=== PATIENT | male | born 1960 | race African-American/Black ===

== ENCOUNTER 2018-06-18 16:27 | Inpatient (IN) | payer OTHER ==
[2018-06-18 22:43] VITALS: BMI 28.6
--- NOTE | 2018-06-19 00:25 | HP ---
CIWA Score - Admission Criteria OASAS Guidelines: Admission for Medically Managed Detox: Requires at least one of the followin. CIWA greater than 12 2. Seizures within the past 24 hours 3. Delirium tremens within the past 24 hours 4. Hallucinations within the past 24 hours 5. Acute intervention needed for co occurring medical disorder 6. Acute intervention needed for co occurring psychiatric disorder 7. Severe withdrawal that cannot be handled at a lower level of care (continued vomiting, continued diarrhea, abnormal vital signs) requiring intravenous medication and/or fluids 8. Admission ROS S - HPI Chief Complaint: seeking rehab services after detox Allergies/Adverse Reactions: Allergies Allergy/AdvReac Type Severity Reaction Status Date / Time No Known Allergies Allergy Verified 06/18/18 23:19 History of Present Illness: 58 Y.O. MALE WITH HX/O ALCOHOLISM AND CANNABIS DEPENDENCE HERE FOR REHAB SERVICES. CLIENT WAS REFERRED BY [facility] AFTER COMPLETING DETOX THERE TODAY for ALCOHOL. HIS UTOX + THC, MET, MTD AND BENZO. CLIENT DENIES ANY OPIATE USE. REPORTS LONGEST CLEAN TIME 3 YEARS SELF MAINTAINED. DENIES DRUG OVERDOSE, SI/HI, SEIZURE LIVES ALONE, SELF-EMPLOYED, DENIES LEGALS PMHX-HTN, GLAUCOMA R EYE, PSYC- ANXIETY, DEPRESSION Exam Limitations: No Limitations, Dementia (SHORT TERM MEMORY LOSS) - Ebola screening Have you traveled outside of the country in the last 21 days: No (N) Have you had contact with anyone from an Ebola affected area: No Have you been sick,other than usual withdrawal symptoms: No Do you have a fever: No - Review of Systems Constitutional: Changes in sleep EENT: reports: Blurred Vision (CHRONIC), Eye Pain (R EYE PAIN), Dental Problems (MISSING TEETH) Cardiac: reports: No Symptoms Reported GI: reports: No Symptoms Reported : reports: No Symptoms Reported (DENIES) Musculoskeletal: reports: No Symptoms Reported Integumentary: reports: No Symptoms Reported Neuro: reports: No Symptoms reported Endocrine: reports: No Symptoms Reported Hematology: reports: No Symptoms Reported Psychiatric: reports: Orientated x3, Agitated, Anxious, Depressed Patient History - Patient Medical History Hx Anemia: No Hx Asthma: No Hx Chronic Obstructive Pulmonary Disease (COPD): No Hx Cancer: No Hx Cardiac Disorders: No Hx Congestive Heart Failure: No Hx Hypertension: Yes Hx Hypercholesterolemia: No Hx Pacemaker: No HX Cerebrovascular Accident: No Hx Seizures: No Hx Dementia: No Hx Diabetes: No Hx Gastrointestinal Disorders: No Hx Liver Disease: No Hx Genitourinary Disorders: No Hx Sexually Transmitted Disorders: No Hx Renal Disease (ESRD): No Hx Thyroid Disease: No Hx Human Immunodeficiency Virus (HIV): No Hx Hepatitis C: Yes Hx Depression: Yes Hx Suicide Attempt: No Hx Bipolar Disorder: No Hx Schizophrenia: No Other Medical History: GLAUCOMA OF LEFT EYE - Patient Surgical History Past Surgical History: Yes Hx Orthopedic Surgery: Yes (R ANKLE) Anesthesia Reaction: No - PPD History Previous Implant?: Yes Documented Results: Negative w/o proof Implanted On Prior [facility] Admission?: No PPD to be Administered?: Yes - Smoking Cessation Smoking history: Former smoker Have you smoked in the past 12 months: No Initiated information on smoking cessation: No Family Disease History - Family Disease History Family History: Denies Admission Physical Exam S - Vital Signs Vital Signs: Vital Signs - 24 hr 06/18/18 22:41 Temperature 96.8 F L Pulse Rate 71 Respiratory 18 Rate Blood Pressure 142/96 - Physical General Appearance: Yes: No Apparent Distress, Appropriately Dressed HEENTM: Yes: EOMI, Normocephalic, Normal Voice, Pharynx Normal, Other (MISSING TEETH) Respiratory: Yes: Chest Non-Tender, Lungs Clear, Normal Breath Sounds, No Respiratory Distress, No Accessory Muscle Use Neck: Yes: No masses,lesions,Nodules, Supple, Trachea in good position Breast: Yes: Breast Exam Deferred Cardiology: Yes: Regular Rhythm, Regular Rate, S1, S2 Abdominal: Yes: Normal Bowel Sounds, Non Tender, Soft, Protuberent Genitourinary: Yes: Within Normal Limits (NO C/O OFFERED) Back: Yes: Normal Inspection Musculoskeletal: Yes: full range of Motion, Gait Steady Extremities: Yes: Normal Capillary Refill, Normal Range of Motion, Non-Tender Neurological: Yes: Fully Oriented, Alert, Motor Strength 5/5, Normal Mood/Affect Integumentary: Yes: Dry, Warm, Rash (FUNGAL RASH NOTED TO NECK), Pitting Edema ( trace edema to ble) Lymphatic: Yes: Within Normal Limits - Diagnostic (1) Uncomplicated alcohol dependence Current Visit: Yes Status: Acute (2) Cannabis abuse, uncomplicated Current Visit: Yes Status: Acute (3) Glaucoma Current Visit: Yes Status: Chronic (4) HTN (hypertension) Current Visit: Yes Status: Chronic Qualifiers: Hypertension type: essential hypertension Qualified Code(s): I10 - Essential (primary) hypertension (5) Depression Current Visit: Yes Status: Suspected (6) Tinea versicolor Current Visit: Yes Status: Acute Cleared for Admission [facility] - Detox or Rehab Detox Regimen/Protocol: Not Applicable Claeared for Rehab Admission: Yes [facility] Breath Alcohol Content Breath Alcohol Content: 0 Urine Drug Screen - Results Drug Screen Negative: No Urine Drug Screen Results: THC-Marijuana, MET-Methamphetamine, BZO- Benzodiazepines, MTD-Methadone Inpatient Rehab Admission - Rehab Decision to Admit Inpatient rehab admission?: Yes - Initial Determination Are CD services needed?: Yes Free of communicable disease: Yes Not in need of hospitalization: Yes - Rehab Admission Criteria Previous failed treatment: Yes Poor recovery environment: Yes Comorbidities: Yes Lacks judgement: No Patient is meeting Inpatient Rehab admission criteria:: Yes
[2018-06-19] MEDS ORDERED: LOPERAMIDE HCL 2 MG CAPSULE PO PRN (00:35)
[2018-06-19] MEDS ORDERED: MAG HYDROX/AL HYDROX/SIMETH 30 ML UNIT-DOSE CUP PO PRN (00:35)
[2018-06-19] MEDS ORDERED: P-EPHED 60MG/TRIPROLIDI 2.5MG TABLET PO PRN (00:35)
[2018-06-19] MEDS ORDERED: ACETAMINOPHEN 325 MG TABLET (FP) PO PRN (00:35)
[2018-06-19] MEDS ORDERED: MAGNESIUM CITRATE 300 ML BOTTLE PO PRN (00:35)
[2018-06-19] MEDS ORDERED: guaiFENesin 200 MG/10 ML 10 ML UNIT-DOSE CUPS PO PRN (00:35)
[2018-06-19] MEDS ORDERED: MAGNESIUM HYDROX 2400MG/30ML ORAL SUSPENSION 30 ML CUP PO PRN (00:35)
[2018-06-19] MEDS ORDERED: MENTHOL/PHENOL 1 EACH UD MM PRN (00:35)
[2018-06-19] MEDS ORDERED: IBUPROFEN 400 MG TABLET (FP) PO PRN (00:35)
[2018-06-19] MEDS: hydrOXYzine PAMOATE 50 MG CAPSULE (FP) PO PRN ×2 (03:42→23:32)
[2018-06-19] MEDS: PRENATAL VITAMINS W/ FOLIC ACID TABLET (FP) PO SCH (09:50)
[2018-06-19] MEDS: amLODIPine BESYLATE 5 MG TABLET (FP) PO SCH (09:50)
[2018-06-19 10:23] LABS: HEMATOCRIT 35.3 % (35.4-49); HEMOGLOBIN 12.5 GM/dL (11.7-16.9); MCH 35.7 pg (25.7-33.7); MCHC 35.3 g/dl (32.0-35.9); MEAN PLT VOLUME 10.3 fl (7.5-11.1); PLATELET COUNT 66 K/MM3 (134-434); RDW 12.9 % (11.9-15.9); WHITE BLOOD COUNT 4.4 K/mm3 (4.0-10.0)
[2018-06-19 10:55] LABS: ALK PHOS 84 U/L (45-117); ANION GAP 6 MMOL/L (8-16); BILIRUBIN,TOTAL 0.7 mg/dL (0.2-1); BLOOD UREA NITROGEN 10 mg/dL (7-18); CALCIUM 8.2 mg/dL (8.5-10.1); CHLORIDE 108 mmol/L (98-107); CO2 27 mmol/L (21-32); CREATININE 1.3 mg/dL (0.55-1.3); GLUCOSE,RANDOM 96 mg/dL (74-106); POTASSIUM 3.5 mmol/L (3.5-5.1); SGOT/AST 104 U/L (15-37); SGPT/ALT 126 U/L (13-61); SODIUM 141 mmol/L (136-145); TOT PROT 6.7 g/dl (6.4-8.2)
[2018-06-19] MEDS ORDERED: PNEUMOC 13-VAL CONJ-DIP CRM/PF 0.5 ML DISP.SYRIN IM ONE (12:00)
[2018-06-19] MEDS ORDERED: PNEUMOCOCCAL 23 VACCINE 0.5 ML VIAL IM ONE (12:00)
[2018-06-19] MEDS: CLOTRIMAZOLE 1% CREAM 15 GM TUBE TP SCH ×2 (12:14→21:36)
[2018-06-19] MEDS: TIMOLOL 0.5% OPHTHALMIC SOL 5 ML BOTTLE OD SCH ×2 (12:18→21:37)
[2018-06-19] MEDS ORDERED: FLU VACCINE QUAD 60 MCG/0.5 ML (MDV 18-19) IM ONE (12:32)
[2018-06-19 17:09] LABS: URINE APPEARANCE CLEAR; URINE BILIRUBIN NEGATIVE (<2.0 mg/dL); URINE COLOR YELLOW; URINE GLUCOSE (UA) NEGATIVE (NEGATIVE); URINE KETONE NEGATIVE (NEGATIVE); URINE LEUK ESTERASE NEGATIVE (NEGATIVE); URINE NITRITE NEGATIVE (NEGATIVE); URINE PROTEIN NEGATIVE (NEGATIVE); URINE UROBILINOGEN NEGATIVE mg/dL (0.2-1.0)
--- NOTE | 2018-06-19 18:24 | CONSULT ---
[facility] Psychiatric Consult - Data Date of interview: 06/19/18 Admission source: Referred by [facility] Identifying data: First admission to [facility] for this 58 y/o AA male referred by [facility] (discharged yesterday from that facility) for rehabilitation. Direct admission to [address]. Issues : alcohol, cannabis dependence co- morbid with Panic Disorder (self-report). Patient is single, a father of two, domiciled and currently self-employed. Substance Abuse History: Discussed in this session. Mr Rose reports daily consumption of 2 pints of liquor + 4 X 40 oz of beer on a daily basis. Denies use of drugs but toxicology is positive for marihuana. Patient indicates that he just got discharged from [facility] (detoxification). Denies smoking. Medical History: Bilateral plantar masses. Psychiatric History: Patient admits to a history of one psychiatric hospitalization, years ago, at the [facility] in [facility]. Diagnosed with MDD and Panic Disorder with agoraphobia. Mr Rose states that he has been on a regimen of venlafaxine 75 mg po tid + vistaril prn for past 10 years. Sees psychiatrists at the [facility] for medication management. Denies history of suicide attempts. Good and articulate historian. Physical/Sexual Abuse/Trauma History: No reported history of abuse. Patient served in the [employer] ([id number]). Was deployed in [place]. Never saw combat. Additional three years in the [employer]. Additional Comment: Urine Drug Screen Results: THC-Marijuana, MET- Methamphetamine, BZO-Benzodiazepines, MTD-Methadone. Noted. Mental Status Exam - Mental Status Exam Alert and Oriented to: Time, Place, Person Cognitive Function: Good Patient Appearance: Well Groomed (muscular built) Mood: Hopeful, Euthymic Affect: Appropriate, Normal Range Patient Behavior: Appropriate, Cooperative Speech Pattern: Clear, Appropriate Voice Loudness: Normal Thought Process: Intact, Goal Oriented Thought Disorder: Not Present Hallucinations: Denies Suicidal Ideation: Denies Homicidal Ideation: Denies Insight/Judgement: Fair Sleep: Fair Appetite: Good Muscle strength/Tone: Normal Gait/Station: Other (walks with a discrete limp) Psychiatric Findings - Problem List ([place] 1, 2,3) (1) Alcohol dependence Current Visit: Yes Status: Acute (2) Cannabis abuse, uncomplicated Current Visit: Yes Status: Acute (3) Depressive disorder Current Visit: Yes Status: Chronic Comment: According to history and self- report. (4) Anxiety disorder Current Visit: Yes Status: Chronic Comment: By History. On medication : venlafaxine. Followed at the [facility]PD clinic. (5) Insomnia Current Visit: Yes Status: Chronic - Initial Treatment Plan Initial Treatment Plan: Psychoeducation. Sleep hygiene. Support. Groups. AA meetings. Motivational sessions throughout rehabilitation treatment. Relapse prevention : discussed with patient. Mr Rose insists on resuming venlafaxine. Side effects/benefits discussed (made aware of risk of hypertension ). Effexor 75 mg po tid. Ordered. Consent (verbal) granted to MD. Pablo.
[2018-06-19] MEDS: THIAMINE HCL 100 MG TABLET (FP) PO SCH (21:35)
[2018-06-19] MEDS: MELATONIN 5 MG TABLETS PO PRN (21:35)
[2018-06-19] MEDS: VENLAFAXINE HCL 75 MG TABLET PO SCH (23:02)
--- NOTE | 2018-06-20 05:14 | PN ---
[facility] Progress Note Note: CLIENT REQUEST TO GO TO HOSPITAL FOR WORSENING HEADACHE ASSOCIATED WITH LEFT EYE PAIN. CLIENT DENIES SOB, C.P. N/V, DIZZINESS. REPORTS HE WOULD LIKE THE PRESSURE IN HIS EYE TO BE MEASURED. SX'S ARE "PRESENT WHEN MY PRESSURE IN MY EYE BUILDS UP" CLIENT DID NOT WANT ANY FURTHER TXMENT OR ASSESSMENT EXPRESSED THAT ALL HE WANTED WAS TO HAVE HIS EYE PRESSURE MEASURED. A/O X3 NAD Last Vital Signs Temp Pulse Resp BP Pulse Ox 97.3 F L 76 18 119/87 06/20/18 04:53 06/20/18 04:53 06/20/18 04:53 06/20/18 04:53 A- GIVEN CLIENT HX/O GLAUCOMA AND NOT COMPLAINT WITH MEDS WILL TRANSFER OUT FOR R/O ACUTE ANGLE-CLOSURE GLAUCOMA P-SPOKE WITH DR. CORRAL FROM [facility]. SHARED THAT THE CLIENT SHOULD BE TRANSFERRED TO [facility] THEY DO NOT HAVE THE TOOLS EITHER TO MEASURE CLIENT EYE PRESSURE. [facility] CALLED INFORMED CLIENT NEEDS TO BE TRANSFERRED TO [facility] REQUEST ACCOMMODATED. CLIENT LEFT UNIT [facility]IA [facility] IN STABLE CONDITION
[2018-06-20] MEDS: VENLAFAXINE HCL 75 MG TABLET PO SCH ×4 (08:32→22:18)
[2018-06-20] MEDS: PRENATAL VITAMINS W/ FOLIC ACID TABLET (FP) PO SCH (11:48)
[2018-06-20] MEDS: CLOTRIMAZOLE 1% CREAM 15 GM TUBE TP SCH ×2 (11:48→22:18)
[2018-06-20] MEDS: amLODIPine BESYLATE 5 MG TABLET (FP) PO SCH ×2 (11:48→16:56)
[2018-06-20] MEDS: TIMOLOL 0.5% OPHTHALMIC SOL 5 ML BOTTLE OS SCH ×2 (11:49→22:18)
--- NOTE | 2018-06-20 21:54 | PN ---
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 DISCHARGE INSTRUCTIONS APPRECIATED. PATIENT EVALUATED AND STATES HE FEELS MUCH BETTER. PATIENT DENIES HEADACHE,BLURRED VISION AND EYE PAIN AT THIS TIME. Laboratory Tests 06/19/18 06/19/18 06/19/18 07:40 07:40 07:40 WBC 4.4 RBC 3.50 L Hgb 12.5 Hct 35.3 L MCV 101.0 H MCH 35.7 H MCHC 35.3 RDW 12.9 Plt Count 66 L MPV 10.3 Sodium 141 Potassium 3.5 Chloride 108 H Carbon Dioxide 27 Anion Gap 6 L BUN 10 Creatinine 1.3 Creat Clearance w eGFR 57.10 Random Glucose 96 Calcium 8.2 L Total Bilirubin 0.7 AST 104 H ALT 126 H Alkaline Phosphatase 84 Total Protein 6.7 Albumin 3.0 L Urine Color Urine Appearance Urine pH Ur Specific [place] Urine Protein Urine Glucose (UA) Urine Ketones Urine Blood Urine Nitrite Urine Bilirubin Urine Urobilinogen Ur Leukocyte Esterase RPR Titer Nonreactive 06/19/18 11:12 WBC RBC Hgb Hct MCV MCH MCHC RDW Plt Count MPV Sodium Potassium Chloride Carbon Dioxide Anion Gap BUN Creatinine Creat Clearance w eGFR Random Glucose Calcium Total Bilirubin AST ALT Alkaline Phosphatase Total Protein Albumin Urine Color Yellow Urine Appearance Clear Urine pH 6.0 Ur Specific [place] 1.012 Urine Protein Negative Urine Glucose (UA) Negative Urine Ketones Negative Urine Blood Negative Urine Nitrite Negative Urine Bilirubin Negative Urine Urobilinogen Negative Ur Leukocyte Esterase Negative RPR Titer Vital Signs Temperature 97.3 F L 06/20/18 04:53 Pulse Rate 76 06/20/18 04:53 Respiratory Rate 18 06/20/18 04:53 Blood Pressure 119/87 06/20/18 04:53 O2 Sat by Pulse Oximetry (%) PE: ALERT AND ORIENTED X 3 SKIN WARM AND DRY EYE +PERRLA, EOMS INTACT BL CAR S1S2 RESP CTA BL A/P: GLAUCOMA PER D/C INSTRUCTIONS, PATIENT STARTED ON DIAMOX 250MG BID PREDNISOLONE 1% OS QID X ONE WEEK BRIMONODINE 0.1% OS BID DORZOLAMIDE 2% OS BID FOR FOLLOW UP WITH [facility] THIS THU/THU FOR FURTHER FOLLOW UP PATIENT AWARE OF MEDICATIONS AND FOLLOW UP APPT CONTINUE TO MONITOR
[2018-06-20] MEDS: hydrOXYzine PAMOATE 50 MG CAPSULE (FP) PO PRN (22:16)
[2018-06-20] MEDS: MELATONIN 5 MG TABLETS PO PRN (22:16)
[2018-06-20] MEDS: BRIMONIDINE TARTRATE 0.1% OPHTHALMIC 5 ML BOTTLE OS SCH (22:17)
[2018-06-20] MEDS: acetaZOLAMIDE 250 MG TABLET PO SCH (22:17)
[2018-06-20] MEDS: prednisoLONE ACETATE 1% OPHTH SUSP 5 ML BOTTLE OS SCH (22:18)
[2018-06-20] MEDS: THIAMINE HCL 100 MG TABLET (FP) PO SCH (22:19)
[2018-06-20] MEDS: DORZOLAMIDE 2% HCL OPHTHALMIC SOLUTION 10 ML BOTTLE OS SCH (22:19)
[2018-06-21] MEDS: hydrOXYzine PAMOATE 50 MG CAPSULE (FP) PO PRN (06:24)
[2018-06-21] MEDS: VENLAFAXINE HCL 75 MG TABLET PO SCH (06:24)
[2018-06-21 06:55] VITALS: TEMP 97.7
[2018-06-21] MEDS: amLODIPine BESYLATE 5 MG TABLET (FP) PO SCH (10:24)
[2018-06-21] MEDS: PRENATAL VITAMINS W/ FOLIC ACID TABLET (FP) PO SCH (10:24)
[2018-06-21] MEDS: acetaZOLAMIDE 250 MG TABLET PO SCH (10:25)
[2018-06-21] MEDS: BRIMONIDINE TARTRATE 0.1% OPHTHALMIC 5 ML BOTTLE OS SCH (10:25)
[2018-06-21] MEDS: DORZOLAMIDE 2% HCL OPHTHALMIC SOLUTION 10 ML BOTTLE OS SCH (10:26)
[2018-06-21] MEDS: CLOTRIMAZOLE 1% CREAM 15 GM TUBE TP SCH (10:27)
[2018-06-21] MEDS: TIMOLOL 0.5% OPHTHALMIC SOL 5 ML BOTTLE OS SCH (10:27)
[2018-06-21] MEDS: prednisoLONE ACETATE 1% OPHTH SUSP 5 ML BOTTLE OS SCH (10:27)
--- NOTE | 2018-06-21 11:24 | EKG ---
Test Reason : Blood Pressure : / mmHG Vent. Rate : 073 BPM Atrial Rate : 073 BPM P-R Int : 166 ms QRS Dur : 098 ms QT Int : 424 ms P-R-T Axes : 051 -11 046 degrees QTc Int : 467 ms NORMAL SINUS RHYTHM NORMAL ECG NO PREVIOUS ECGS AVAILABLE Confirmed by SEAN LEONARDO MD ([id number]) on 06/21/2018 11:23:56 AM Referred By: Confirmed By:SEAN LEONARDO MD
[2018-06-21 11:44] VITALS: BP 105/74; PULSE 72
--- NOTE | 2018-06-21 11:58 | PN ---
[facility] Progress Note Note: PT DECLINED TO CONTINUE WITH REHAB STATING HE HAS LEGAL ISSUES WITH THE COURT ELSE HE WILL BE EVICTED FROM HIS APARTMENT. PT REPORTS HE HAS PRIMARY CARE AT [place], [place]. PT STATES HIS AMLODIPINE JUST FINISHED AND WANTS A RX. 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 PT IS ALERT O X 3. NO COMPLAINTS OF EYE DISCOMFORT OFFERED. DENIES S/H/I. Home Medications Medication Instructions Recorded Hydroxyzine HCl 25 mg PO BID 06/18/18 Timolol 0.5% [Timoptic 0.5%] 1 drop OD BID 06/18/18 Venlafaxine HCl [Effexor -] 75 mg PO TID 06/18/18 Amlodipine Besylate [Norvasc -] 5 mg PO DAILY #30 tablet 06/21/18 Vital Signs - 24 hr 06/20/18 06/20/18 06/21/18 16:45 21:00 00:30 Temperature 98.7 F Pulse Rate 67 78 Respiratory 18 18 18 Rate Blood Pressure 140/92 128/79 06/21/18 06/21/18 06/21/18 03:30 06:53 10:00 Temperature 97.7 F Pulse Rate 62 72 Respiratory 18 18 Rate Blood Pressure 143/91 105/74 Laboratory Tests 06/19/18 06/19/18 06/19/18 07:40 07:40 07:40 WBC 4.4 RBC 3.50 L Hgb 12.5 Hct 35.3 L MCV 101.0 H MCH 35.7 H MCHC 35.3 RDW 12.9 Plt Count 66 L MPV 10.3 Sodium 141 Potassium 3.5 Chloride 108 H Carbon Dioxide 27 Anion Gap 6 L BUN 10 Creatinine 1.3 Creat Clearance w eGFR 57.10 Random Glucose 96 Calcium 8.2 L Total Bilirubin 0.7 AST 104 H ALT 126 H Alkaline Phosphatase 84 Total Protein 6.7 Albumin 3.0 L Urine Color Urine Appearance Urine pH Ur Specific [place] Urine Protein Urine Glucose (UA) Urine Ketones Urine Blood Urine Nitrite Urine Bilirubin Urine Urobilinogen Ur Leukocyte Esterase RPR Titer Nonreactive 06/19/18 11:12 WBC RBC Hgb Hct MCV MCH MCHC RDW Plt Count MPV Sodium Potassium Chloride Carbon Dioxide Anion Gap BUN Creatinine Creat Clearance w eGFR Random Glucose Calcium Total Bilirubin AST ALT Alkaline Phosphatase Total Protein Albumin Urine Color Yellow Urine Appearance Clear Urine pH 6.0 Ur Specific [place] 1.012 Urine Protein Negative Urine Glucose (UA) Negative Urine Ketones Negative Urine Blood Negative Urine Nitrite Negative Urine Bilirubin Negative Urine Urobilinogen Negative Ur Leukocyte Esterase Negative RPR Titer PLT= 66 LABS REVIEWED WITH PATIENT AND INSTRUCTED TO FOLLOW UP WITH COPY TO PCP AT [facility] AFTER DISCHARGE. NAD MEDICALLY STABLE. PLAN:PT SIGNED OUT AMA FOR PERSONAL REASONS. FOLLOW UP WITH PCP FOR MEDICAL MANAGEMENT ABOVE WITHIN 1 WEEK. PT ENCOURAGED TO STOP ALCOHOL INTAKE. OVERVIEW ON ALCOHOL AND LIVER EFFECTS DONE WITH PATIENT.
== END 2018-06-21 12:10 | disposition left against medical advice (07) | DRG 770 ==
LOC: YASAS 16:27 → Y5N 23:39
PROVIDERS: ADMIT Neuromusculoskeletal Medicine & OMM; ATTEND Neuromusculoskeletal Medicine & OMM
PROC: HZ42ZZZ Group Counseling for Substance Abuse Treatment, Cognitive-Behavioral (ICD-10-PCS; principal; 2018-06-18)
DX: F10.20 Alcohol dependence, uncomplicated (principal); F12.10 Cannabis abuse, uncomplicated; F32.9 Major depressive disorder, single episode, unspecified; F41.9 Anxiety disorder, unspecified; I10 Essential (primary) hypertension; G47.00 Insomnia, unspecified; H40.42 Glaucoma secondary to eye inflammation, left eye; B36.0 Pityriasis versicolor; Z87.891 Personal history of nicotine dependence; Z91.14 Patient's other noncompliance with medication regimen
CPT/HCPCS: 36415; 80053; 81003; 85027; 86593; 90688; 90732; 93005; 93010; G0008; G0009

== ENCOUNTER 2019-02-17 13:32 | Inpatient (IN) | payer OTHER ==
[2019-02-17 17:05] VITALS: BMI 27.8
--- NOTE | 2019-02-17 18:11 | HP ---
CIWA Score Nausea/Vomitin Muscle Tremors: 3 Anxiety: 5 Agitation: 0-Normal Activity Paroxysmal Sweats: No Perspiration Orientation: 0-Oriented Tacttile Disturbances: 3-Moderate Itch/Numb/Burn Auditory Disturbances: 0-None Visual Disturbances: 0-None Headache: 0-None Present CIWA-Ar Total Score: 14 - Admission Criteria OASAS Guidelines: Admission for Medically Managed Detox: Requires at least one of the followin. CIWA greater than 12 2. Seizures within the past 24 hours 3. Delirium tremens within the past 24 hours 4. Hallucinations within the past 24 hours 5. Acute intervention needed for co occurring medical disorder 6. Acute intervention needed for co occurring psychiatric disorder 7. Severe withdrawal that cannot be handled at a lower level of care (continued vomiting, continued diarrhea, abnormal vital signs) requiring intravenous medication and/or fluids 8. Patient presents the following: CIWA greater than 12 Admission Criteria Met: Admission criteria met Admitting History and Physical - Admission Chief Complaint: alcohol withdrawal sx History of Present Illness: Patient is a 58 yo male with hx of alcohol and cannabis dependence is here seeking inpatient detox d/t withdrawal sx when he does not consume alcohol. Last treatment [facility] June 2017. Utox + THC, DELMI 0.024. Denies hx of withdrawal seizures. PMHX: Hep C, HTN on Amlodipine 10 mg reports med adherence, glaucoma right eye. Psych: anxiety , depression . Denies SI/HI History Source: Patient Limitations to Obtaining History: No Limitations - Past Medical History Cardiovascular: Yes: HTN - Smoking History Smoking history: Former smoker Have you smoked in the past 12 months: No Admission ROS [facility] - HPI Allergies/Adverse Reactions: Allergies Allergy/AdvReac Type Severity Reaction Status Date / Time No Known Allergies Allergy Verified 02/17/19 15:40 Exam Limitations: No Limitations - Ebola screening Have you traveled outside of the country in the last 21 days: No Have you had contact with anyone from an Ebola affected area: No Do you have a fever: No - Review of Systems Constitutional: Chills, Changes in sleep EENT: reports: See HPI Respiratory: reports: No Symptoms reported Cardiac: reports: No Symptoms Reported GI: reports: Diarrhea, Nausea, Poor Appetite, Poor Fluid Intake : reports: No Symptoms Reported Musculoskeletal: reports: Joint Pain Integumentary: reports: Dryness, Pruritus Neuro: reports: No Symptoms reported Endocrine: reports: Increased Thirst Hematology: reports: No Symptoms Reported Psychiatric: reports: Orientated x3, Anxious Other Systems: Reviewed and Negative Patient History - Patient Medical History Hx Anemia: No Hx Asthma: No Hx Chronic Obstructive Pulmonary Disease (COPD): No Hx Cancer: No Hx Cardiac Disorders: No Hx Congestive Heart Failure: No Hx Hypertension: Yes Hx Hypercholesterolemia: No Hx Pacemaker: No HX Cerebrovascular Accident: No Hx Seizures: No Hx Dementia: No Hx Diabetes: No Hx Gastrointestinal Disorders: No Hx Liver Disease: No Hx Genitourinary Disorders: No Hx Sexually Transmitted Disorders: No Hx Renal Disease (ESRD): No Hx Thyroid Disease: No Hx Human Immunodeficiency Virus (HIV): No Hx Hepatitis C: Yes Hx Depression: Yes Hx Suicide Attempt: No Hx Bipolar Disorder: No Hx Schizophrenia: No - Patient Surgical History Past Surgical History: Yes Hx Orthopedic Surgery: Yes (R ANKLE) Anesthesia Reaction: No - PPD History Previous Implant?: No Documented Results: Negative w/o proof PPD to be Administered?: Yes - Smoking Cessation Smoking history: Former smoker Have you smoked in the past 12 months: No Hx Chewing Tobacco Use: No Initiated information on smoking cessation: No - Substance & Tx. History Hx Alcohol Use: Yes Hx Substance Use: Yes Substance Use Type: Alcohol Hx Substance Use Treatment: Yes ([facility] June 2018) - Substances abused Alcohol Substance route: Oral Frequency: Daily Amount used: 3pint of liquor + 200 oz beer Age of first use: 20 Date of last use: 02/17/19 Admission Physical Exam BHS - Vital Signs Vital Signs: Vital Signs - 24 hr 02/17/19 02/17/19 16:56 17:21 Temperature 97.8 F 97.8 F Pulse Rate 75 75 Respiratory 18 18 Rate Blood Pressure 149/95 149/95 - Physical General Appearance: Yes: Appropriately Dressed, Disheveled, Sweating, Anxious HEENTM: Yes: EOMI, Hearing grossly Normal, Normal ENT Inspection, Normocephalic , Normal Voice, SUNITHA, Pharynx Normal, Tm's normal Respiratory: Yes: Chest Non-Tender, Lungs Clear, Normal Breath Sounds, No Respiratory Distress, No Accessory Muscle Use Neck: Yes: Within Normal Limits Breast: Yes: Breast Exam Deferred Cardiology: Yes: Regular Rhythm, Regular Rate Abdominal: Yes: Normal Bowel Sounds, Non Tender Genitourinary: Yes: Within Normal Limits Back: Yes: Normal Inspection Musculoskeletal: Yes: full range of Motion, Gait Steady, Pelvis Stable Extremities: Yes: Normal Capillary Refill, Normal Inspection, Normal Range of Motion, Non-Tender Neurological: Yes: accounting file clerk II-XII NML intact, Fully Oriented, Alert, Motor Strength 5/5, Normal Response, Depressed Affect Integumentary: Yes: Normal Color, Warm, Diaphoresis - Diagnostic (1) Alcohol dependence with withdrawal, uncomplicated Current Visit: Yes Status: Acute (2) Anxiety disorder Current Visit: No Status: Chronic Comment: By History. On medication : venlafaxine. Followed at the [facility] clinic. (3) Glaucoma Current Visit: Yes Status: Chronic Qualifiers: Glaucoma type: unspecified (4) HTN (hypertension) Current Visit: Yes Status: Chronic Qualifiers: Hypertension type: essential hypertension Qualified Code(s): I10 - Essential (primary) hypertension Cleared for Admission S - Detox or Rehab [facility] Level of Care: Medically Managed Detox Regimen/Protocol: Librium Breathalyzer - Breathalyzer Breathalyzer: 0.024 Urine Drug Screen - Test Device Lot number: [id number] Expiration date: 10/10/20 - Control Is test valid?: Yes - Results Drug screen NEGATIVE: No Urine drug screen results: THC-Marijuana Inpatient Rehab Admission - Rehab Decision to Admit Inpatient rehab admission?: No
[2019-02-17] MEDS ORDERED: MAGNESIUM CITRATE 300 ML BOTTLE PO PRN (18:15)
[2019-02-17] MEDS ORDERED: BISMUTH SUBSALICYLATE 524 MG/30 ML UD PO PRN (18:15)
[2019-02-17] MEDS ORDERED: MENTHOL/PHENOL 1 EACH UD MM PRN (18:15)
[2019-02-17] MEDS ORDERED: MAG HYDROX/AL HYDROX/SIMETH 30 ML UNIT-DOSE CUP PO PRN (18:15)
[2019-02-17] MEDS ORDERED: chlordiazePOXIDE HCL 25 MG CAPSULE PO PRN (18:15)
[2019-02-17] MEDS ORDERED: MAGNESIUM HYDROX 2400MG/30ML ORAL SUSPENSION 30 ML CUP PO PRN (18:15)
[2019-02-17] MEDS ORDERED: IBUPROFEN 400 MG TABLET (FP) PO PRN (18:15)
[2019-02-17] MEDS ORDERED: HYDROXYZINE HCL 25 MG PO SCH (22:00)
[2019-02-17] MEDS: chlordiazePOXIDE HCL 25 MG CAPSULE PO SCH (22:24)
[2019-02-17] MEDS: MELATONIN 5 MG TABLETS PO PRN (22:24)
[2019-02-17] MEDS: THIAMINE HCL 100 MG TABLET (FP) PO SCH (22:24)
[2019-02-17] MEDS: TIMOLOL 0.5% OPHTHALMIC SOL 5 ML BOTTLE OD SCH (22:49)
[2019-02-18] MEDS: chlordiazePOXIDE HCL 25 MG CAPSULE PO SCH ×4 (05:11→22:15)
[2019-02-18 10:08] LABS: ALBUMIN 3.1 g/dl (3.4-5.0); BILIRUBIN,TOTAL 1.6 mg/dL (0.2-1); BLOOD UREA NITROGEN 10.2 mg/dL (7-18); CALCIUM 8.4 mg/dL (8.5-10.1); CREATININE 1.2 mg/dL (0.55-1.3); POTASSIUM 3.4 mmol/L (3.5-5.1); TOT PROT 6.6 g/dl (6.4-8.2)
[2019-02-18 10:10] LABS: HEMATOCRIT 38.1 % (35.4-49); HEMOGLOBIN 12.8 GM/dL (11.7-16.9); MCH 33.8 pg (25.7-33.7); MCHC 33.5 g/dl (32.0-35.9); MEAN PLT VOLUME 10.8 fl (7.5-11.1); PLATELET COUNT 79 K/MM3 (134-434); RBC 3.77 M/mm3 (4.00-5.60); RDW 12.8 % (11.9-15.9); WHITE BLOOD COUNT 3.9 K/mm3 (4.0-10.0)
[2019-02-18] MEDS: TIMOLOL 0.5% OPHTHALMIC SOL 5 ML BOTTLE OD SCH ×2 (10:13→22:14)
[2019-02-18] MEDS: hydrOXYzine PAMOATE 25 MG CAPSULE (FP) PO PRN ×2 (10:15→22:31)
[2019-02-18] MEDS: PRENATAL VITAMINS W/ FOLIC ACID TABLET (FP) PO SCH (10:15)
[2019-02-18] MEDS: amLODIPine BESYLATE 5 MG TABLET (FP) PO SCH (10:15)
--- NOTE | 2019-02-18 11:50 | CONSULT ---
[facility] Psychiatric Consult - Data Date of interview: 02/18/19 Admission source: [facility] Identifying data: Readmission to [facility] for this 58 y/o AA male self- referred for detoxification (NAVARRO issues : alcohol, cannabis). Interviewed at [address] [place] [address]. Patient is single, a father of three, domiciled, unemployed and supported on odd jobs. Substance Abuse History: Discussed with patient. Details concordant with Current [facility] report as follows : Smoking history: Former smoker. Have you smoked in the past 12 months: No. Hx Chewing Tobacco Use: No. Initiated information on smoking cessation: No. - Substance & Tx. History. Hx Alcohol Use: Yes. Hx Substance Use: Yes. Substance Use Type: Alcohol. Hx Substance Use Treatment: Yes ([facility] June 2018). - Substances abused. Alcohol. Substance route: Oral. Frequency: Daily. Amount used: 3pint of liquor + 200 oz beer. Age of first use: 20. Date of last use: 02/17/19 Medical History: Medical profile is remarkable for hepatitis C, hypertension, glaucoma (right eye) and history of orthosurgery (fracture of right ankle). Psychiatric History: History of one psychiatric hospitalization, years ago, at the [facility] in [facility]. Patient endorses the diagnoses of MDD and Anxiety Disorder. Mr Rose uses to be prescribed venlafaxine 75 mg po tid + vistaril prn. No current OPD care. " I go sometimes to the [facility] O[facility] clinic to see the psychiatrist. " Patient reports no shows for several weeks. Denies history of suicide attempts. Physical/Sexual Abuse/Trauma History: No reported history of abuse. Patient served in the [employer] ([id number]). Was deployed in [place] and [place]. Never saw combat. Spent an additional three years in the [employer]. Additional Comment: Urine drug screen results: THC-Marijuana. Noted. Mental Status Exam - Mental Status Exam Alert and Oriented to: Time, Place, Person Cognitive Function: Good Patient Appearance: Well Groomed Mood: Withdrawn, Hopeful Affect: Appropriate, Normal Range Patient Behavior: Fatigued, Appropriate, Cooperative Speech Pattern: Clear, Appropriate Voice Loudness: Normal Thought Process: Intact, Goal Oriented Thought Disorder: Not Present Hallucinations: Denies Suicidal Ideation: Denies Homicidal Ideation: Denies Insight/Judgement: Fair Sleep: Fair Appetite: Good Muscle strength/Tone: Normal (no complaint offered) Gait/Station: Normal Psychiatric Findings - Problem List ([place] 1, 2,3) (1) Alcohol dependence with withdrawal, uncomplicated Current Visit: Yes Status: Acute (2) Cannabis abuse, uncomplicated Current Visit: Yes Status: Chronic (3) Anxiety disorder Current Visit: Yes Status: Chronic Comment: By History. Non-compliant with medications. (4) Substance induced mood disorder Current Visit: Yes Status: Chronic (5) Non-compliance Current Visit: Yes Status: Chronic - Initial Treatment Plan Initial Treatment Plan: Psychoeducation. Sleep hygiene. Detoxification. AA meetings. MAT services discussed with the patient (used to be on CHRISTOPHER naltrexone) . Motivational counseling provided in this session. Patient declines to resume venlafaxine but agrees to hydroxyzine. Side effects/benefits revisited. Verbal consent granted to MD. Pablo.
--- NOTE | 2019-02-18 12:00 | PN ---
[facility] CIWA - CIWA Score Nausea/Vomitin-Mild Nausea/No Vomiting Muscle Tremors: 1-None Visible, but [place] Anxiety: 2 Agitation: 2 Paroxysmal Sweats: No Perspiration Orientation: 0-Oriented Tacttile Disturbances: 1-Very Mild Itch/Numbness Auditory Disturbances: 0-None Visual Disturbances: 0-None Headache: 1-Very Mild CIWA-Ar Total Score: 8 BHS Progress Note (SOAP) Subjective: alert,irritable,anxious,pain in the body,tremor Objective: 02/18/19 11:59 Vital Signs Temperature 97.7 F 02/18/19 09:22 Pulse Rate 96 H 02/18/19 09:22 Respiratory Rate 20 02/18/19 09:22 Blood Pressure 131/91 02/18/19 09:22 O2 Sat by Pulse Oximetry (%) 02/18/19 11:59 Laboratory Last Values WBC 3.9 K/mm3 (4.0-10.0) L 02/18/19 08:00 RBC 3.77 M/mm3 (4.00-5.60) L 02/18/19 08:00 Hgb 12.8 GM/dL (11.7-16.9) 02/18/19 08:00 Hct 38.1 % (35.4-49) 02/18/19 08:00 MCV 101.0 fl (80-96) H 02/18/19 08:00 MCH 33.8 pg (25.7-33.7) H 02/18/19 08:00 MCHC 33.5 g/dl (32.0-35.9) 02/18/19 08:00 RDW 12.8 % (11.9-15.9) 02/18/19 08:00 Plt Count 79 K/MM3 (134-434) L 02/18/19 08:00 MPV 10.8 fl (7.5-11.1) 02/18/19 08:00 Sodium 140 mmol/L (136-145) 02/18/19 08:00 Potassium 3.4 mmol/L (3.5-5.1) L 02/18/19 08:00 Chloride 105 mmol/L (98-107) 02/18/19 08:00 Carbon Dioxide 30 mmol/L (21-32) 02/18/19 08:00 Anion Gap 5 MMOL/L (8-16) L 02/18/19 08:00 BUN 10.2 mg/dL (7-18) 02/18/19 08:00 Creatinine 1.2 mg/dL (0.55-1.3) 02/18/19 08:00 Est GFR (CKD-EPI)AfAm 77.88 02/18/19 08:00 Est GFR (CKD-EPI)NonAf 67.19 02/18/19 08:00 Random Glucose 106 mg/dL (74-106) 02/18/19 08:00 Calcium 8.4 mg/dL (8.5-10.1) L 02/18/19 08:00 Total Bilirubin 1.6 mg/dL (0.2-1) H 02/18/19 08:00 AST 157 U/L (15-37) H 02/18/19 08:00 ALT 176 U/L (13-61) H 02/18/19 08:00 Alkaline Phosphatase 77 U/L (45-117) 02/18/19 08:00 Total Protein 6.6 g/dl (6.4-8.2) 02/18/19 08:00 Albumin 3.1 g/dl (3.4-5.0) L 02/18/19 08:00 RPR Titer Nonreactive (NONREACTIVE) 02/18/19 08:00 Assessment: 02/18/19 12:01 withdrawal symptom Plan: continue detox,repeat alt,ast,inr in am
[2019-02-18] MEDS: THIAMINE HCL 100 MG TABLET (FP) PO SCH (22:15)
[2019-02-18] MEDS: MELATONIN 5 MG TABLETS PO PRN (22:16)
[2019-02-19] MEDS: chlordiazePOXIDE HCL 25 MG CAPSULE PO SCH ×2 (05:20→10:29)
[2019-02-19] MEDS: amLODIPine BESYLATE 5 MG TABLET (FP) PO SCH (10:28)
[2019-02-19] MEDS: PRENATAL VITAMINS W/ FOLIC ACID TABLET (FP) PO SCH (10:28)
[2019-02-19] MEDS: TIMOLOL 0.5% OPHTHALMIC SOL 5 ML BOTTLE OD SCH ×2 (10:28→22:39)
[2019-02-19] MEDS: hydrOXYzine PAMOATE 25 MG CAPSULE (FP) PO PRN ×2 (10:31→17:18)
[2019-02-19 11:20] LABS: INR 1.1 (0.83-1.09)
--- NOTE | 2019-02-19 11:22 | PN ---
S CIWA - CIWA Score Nausea/Vomitin-No Nausea/No Vomiting Muscle Tremors: None Anxiety: 3 Agitation: 0-Normal Activity Paroxysmal Sweats: 3 Orientation: 0-Oriented Tacttile Disturbances: 0-None Auditory Disturbances: 0-None Visual Disturbances: 0-None Headache: 2-Mild CIWA-Ar Total Score: 8 BHS Progress Note (SOAP) Subjective: c/o sweats, anxiety, and headache. Objective: 02/19/19 11:20 Vital Signs 02/19/19 02/19/19 02/19/19 03:30 06:07 09:28 Temperature 97.5 F L 97.7 F Pulse Rate 75 73 Respiratory 18 18 16 Rate Blood Pressure 130/82 132/87 Lab Results WBC 3.9 K/mm3 (4.0-10.0) L 02/18/19 08:00 RBC 3.77 M/mm3 (4.00-5.60) L 02/18/19 08:00 Hgb 12.8 GM/dL (11.7-16.9) 02/18/19 08:00 Hct 38.1 % (35.4-49) 02/18/19 08:00 MCV 101.0 fl (80-96) H 02/18/19 08:00 MCHC 33.5 g/dl (32.0-35.9) 02/18/19 08:00 RDW 12.8 % (11.9-15.9) 02/18/19 08:00 Plt Count 79 K/MM3 (134-434) L 02/18/19 08:00 Sodium 140 mmol/L (136-145) 02/18/19 08:00 Potassium 3.4 mmol/L (3.5-5.1) L 02/18/19 08:00 Chloride 105 mmol/L (98-107) 02/18/19 08:00 Carbon Dioxide 30 mmol/L (21-32) 02/18/19 08:00 Anion Gap 5 MMOL/L (8-16) L 02/18/19 08:00 BUN 10.2 mg/dL (7-18) 02/18/19 08:00 Creatinine 1.2 mg/dL (0.55-1.3) 02/18/19 08:00 Random Glucose 106 mg/dL (74-106) 02/18/19 08:00 Calcium 8.4 mg/dL (8.5-10.1) L 02/18/19 08:00 INR 1.10 (0.83-1.09) H 02/19/19 07:50 Abnormal Lab Results 02/19/19 02/19/19 02/19/19 07:50 07:50 07:50 INR 1.10 H AST 192 H ALT 196 H Labs noted with elevated AST/ALT. Assessment: 02/19/19 11:21 AOX3, in no acute respiratory distress. Full rom, ambulating in the unit. Withdrawal symptoms. Elevated liver enzymes. Plan: continue detox. change librium protocol to ativan protocol.
--- NOTE | 2019-02-19 11:42 | PN ---
[facility] Progress Note Note: Psychiatry Attending's note (follow-up) : Approached by patient for discussion of medications. Mr Rose expresses the wish to resume venlafaxine. " It helps me control my anxiety. I agree with 75 mg per day. " Side effects/benefits discussed. Patient made aware of risk of HTN. Patient gave verbal consent to this plan of care.
[2019-02-19] MEDS: VENLAFAXINE HCL 75 MG TABLET PO SCH (13:52)
[2019-02-19] MEDS: LORazepam 2 MG TABLET PO SCH ×2 (17:17→22:28)
[2019-02-19] MEDS: THIAMINE HCL 100 MG TABLET (FP) PO SCH (22:27)
[2019-02-19] MEDS: MELATONIN 5 MG TABLETS PO PRN (22:28)
[2019-02-20] MEDS ORDERED: chlordiazePOXIDE HCL 10 MG CAPSULE PO PRN
[2019-02-20] MEDS ORDERED: chlordiazePOXIDE HCL 10 MG CAPSULE PO SCH (05:00)
[2019-02-20] MEDS: LORazepam 1 MG TABLET PO SCH ×5 (06:02→22:11)
[2019-02-20] MEDS: hydrOXYzine PAMOATE 25 MG CAPSULE (FP) PO PRN ×3 (06:07→22:12)
[2019-02-20] MEDS: amLODIPine BESYLATE 5 MG TABLET (FP) PO SCH (10:30)
[2019-02-20] MEDS: VENLAFAXINE HCL 75 MG TABLET PO SCH (10:30)
[2019-02-20] MEDS: PRENATAL VITAMINS W/ FOLIC ACID TABLET (FP) PO SCH (10:30)
[2019-02-20] MEDS: TIMOLOL 0.5% OPHTHALMIC SOL 5 ML BOTTLE OD SCH ×2 (10:35→22:11)
--- NOTE | 2019-02-20 10:52 | PN ---
[facility] CIWA - CIWA Score Nausea/Vomitin-No Nausea/No Vomiting Muscle Tremors: 1-None Visible, but [place] Anxiety: 1-Mildly Anxious Agitation: 1-Slight > Activity Paroxysmal Sweats: 1-Minimal Palms Moist Orientation: 0-Oriented Tacttile Disturbances: 0-None Auditory Disturbances: 0-None Visual Disturbances: 0-None Headache: 0-None Present CIWA-Ar Total Score: 4 BHS Progress Note (SOAP) Subjective: 58 years old male admitted on 02/17/19 for alcohol withdrawal sx management treated with ativan detox regimen patient tolerated well alert oriented x 3 [address] patient requests to take librium as whole capsule discuss with the patient that he is taking ativan for alcohol detox patient demands both librium and ativan for alcohol detox health teaching on risks of librium mixed with ativan encourage ativan prn Objective: 02/20/19 11:07 Vital Signs Temperature 97.1 F L 02/20/19 09:05 Pulse Rate 95 H 02/20/19 09:05 Respiratory Rate 18 02/20/19 09:05 Blood Pressure 112/75 02/20/19 09:05 O2 Sat by Pulse Oximetry (%) Laboratory Last Values WBC 3.9 K/mm3 (4.0-10.0) L 02/18/19 08:00 RBC 3.77 M/mm3 (4.00-5.60) L 02/18/19 08:00 Hgb 12.8 GM/dL (11.7-16.9) 02/18/19 08:00 Hct 38.1 % (35.4-49) 02/18/19 08:00 MCV 101.0 fl (80-96) H 02/18/19 08:00 MCH 33.8 pg (25.7-33.7) H 02/18/19 08:00 MCHC 33.5 g/dl (32.0-35.9) 02/18/19 08:00 RDW 12.8 % (11.9-15.9) 02/18/19 08:00 Plt Count 79 K/MM3 (134-434) L 02/18/19 08:00 MPV 10.8 fl (7.5-11.1) 02/18/19 08:00 PT with INR 13.00 SEC (9.7-13.0) 02/19/19 07:50 INR 1.10 (0.83-1.09) H 02/19/19 07:50 Sodium 140 mmol/L (136-145) 02/18/19 08:00 Potassium 3.4 mmol/L (3.5-5.1) L 02/18/19 08:00 Chloride 105 mmol/L (98-107) 02/18/19 08:00 Carbon Dioxide 30 mmol/L (21-32) 02/18/19 08:00 Anion Gap 5 MMOL/L (8-16) L 02/18/19 08:00 BUN 10.2 mg/dL (7-18) 02/18/19 08:00 Creatinine 1.2 mg/dL (0.55-1.3) 02/18/19 08:00 Est GFR (CKD-EPI)AfAm 77.88 02/18/19 08:00 Est GFR (CKD-EPI)NonAf 67.19 02/18/19 08:00 Random Glucose 106 mg/dL (74-106) 02/18/19 08:00 Calcium 8.4 mg/dL (8.5-10.1) L 02/18/19 08:00 Total Bilirubin 1.6 mg/dL (0.2-1) H 02/18/19 08:00 AST 192 U/L (15-37) H 02/19/19 07:50 ALT 196 U/L (13-61) H 02/19/19 07:50 Alkaline Phosphatase 77 U/L (45-117) 02/18/19 08:00 Total Protein 6.6 g/dl (6.4-8.2) 02/18/19 08:00 Albumin 3.1 g/dl (3.4-5.0) L 02/18/19 08:00 RPR Titer Nonreactive (NONREACTIVE) 02/18/19 08:00 lab noted K+ 3.4 ast elevation repeat ast 02/20/19 low plat discontinue motrin 02/20/19 11:11 Assessment: 02/20/19 11:15 alcohol withdrawal sx Plan: continue ativan detox regimen
[2019-02-20] MEDS: METHOCARBAMOL 500 MG TABLET PO PRN (12:40)
[2019-02-20] MEDS: THIAMINE HCL 100 MG TABLET (FP) PO SCH (22:11)
[2019-02-20] MEDS: MELATONIN 5 MG TABLETS PO PRN (22:11)
[2019-02-21] MEDS ORDERED: chlordiazePOXIDE HCL 10 MG CAPSULE PO SCH (05:00)
[2019-02-21] MEDS: LORazepam 0.5 MG TABLET PO SCH ×4 (05:10→22:21)
[2019-02-21] MEDS: hydrOXYzine PAMOATE 25 MG CAPSULE (FP) PO PRN ×2 (05:11→22:22)
[2019-02-21] MEDS: PRENATAL VITAMINS W/ FOLIC ACID TABLET (FP) PO SCH (10:13)
[2019-02-21] MEDS: amLODIPine BESYLATE 5 MG TABLET (FP) PO SCH (10:13)
[2019-02-21] MEDS: TIMOLOL 0.5% OPHTHALMIC SOL 5 ML BOTTLE OD SCH ×2 (10:13→22:21)
[2019-02-21] MEDS: VENLAFAXINE HCL 75 MG TABLET PO SCH (10:14)
--- NOTE | 2019-02-21 10:20 | PN ---
[facility] CIWA - CIWA Score Nausea/Vomitin-No Nausea/No Vomiting Muscle Tremors: 1-None Visible, but [place] Anxiety: 1-Mildly Anxious Agitation: 0-Normal Activity Paroxysmal Sweats: No Perspiration Orientation: 0-Oriented Tacttile Disturbances: 0-None Auditory Disturbances: 0-None Visual Disturbances: 0-None Headache: 0-None Present CIWA-Ar Total Score: 2 S Progress Note (SOAP) Subjective: 58 years old male admitted on 02/17/19 for alcohol withdrawal sx management treated with ativan detox regimen feeling better less tremor mild anxiety discuss aftercare with staff Objective: 02/21/19 10:19 Vital Signs Temperature 97.1 F L 02/21/19 09:23 Pulse Rate 71 02/21/19 09:23 Respiratory Rate 18 02/21/19 09:23 Blood Pressure 98/58 L 02/21/19 09:23 O2 Sat by Pulse Oximetry (%) Laboratory Last Values WBC 3.9 K/mm3 (4.0-10.0) L 02/18/19 08:00 RBC 3.77 M/mm3 (4.00-5.60) L 02/18/19 08:00 Hgb 12.8 GM/dL (11.7-16.9) 02/18/19 08:00 Hct 38.1 % (35.4-49) 02/18/19 08:00 MCV 101.0 fl (80-96) H 02/18/19 08:00 MCH 33.8 pg (25.7-33.7) H 02/18/19 08:00 MCHC 33.5 g/dl (32.0-35.9) 02/18/19 08:00 RDW 12.8 % (11.9-15.9) 02/18/19 08:00 Plt Count 79 K/MM3 (134-434) L 02/18/19 08:00 MPV 10.8 fl (7.5-11.1) 02/18/19 08:00 PT with INR 13.00 SEC (9.7-13.0) 02/19/19 07:50 INR 1.10 (0.83-1.09) H 02/19/19 07:50 Sodium 140 mmol/L (136-145) 02/18/19 08:00 Potassium 3.4 mmol/L (3.5-5.1) L 02/18/19 08:00 Chloride 105 mmol/L (98-107) 02/18/19 08:00 Carbon Dioxide 30 mmol/L (21-32) 02/18/19 08:00 Anion Gap 5 MMOL/L (8-16) L 02/18/19 08:00 BUN 10.2 mg/dL (7-18) 02/18/19 08:00 Creatinine 1.2 mg/dL (0.55-1.3) 02/18/19 08:00 Est GFR (CKD-EPI)AfAm 77.88 02/18/19 08:00 Est GFR (CKD-EPI)NonAf 67.19 02/18/19 08:00 Random Glucose 106 mg/dL (74-106) 02/18/19 08:00 Calcium 8.4 mg/dL (8.5-10.1) L 02/18/19 08:00 Total Bilirubin 1.6 mg/dL (0.2-1) H 02/18/19 08:00 AST 152 U/L (15-37) H 02/21/19 07:50 ALT 196 U/L (13-61) H 02/19/19 07:50 Alkaline Phosphatase 77 U/L (45-117) 02/18/19 08:00 Total Protein 6.6 g/dl (6.4-8.2) 02/18/19 08:00 Albumin 3.1 g/dl (3.4-5.0) L 02/18/19 08:00 RPR Titer Nonreactive (NONREACTIVE) 02/18/19 08:00 lab noted Assessment: 02/21/19 10:20 alcohol withdrawal sx Plan: continue ativan detox regimen
[2019-02-21] MEDS: MELATONIN 5 MG TABLETS PO PRN (22:21)
[2019-02-21] MEDS: THIAMINE HCL 100 MG TABLET (FP) PO SCH (22:21)
[2019-02-21] MEDS: METHOCARBAMOL 500 MG TABLET PO PRN (22:22)
[2019-02-22] MEDS ORDERED: LORazepam 0.5 MG TABLET PO PRN
[2019-02-22] MEDS ORDERED: chlordiazePOXIDE HCL 10 MG CAPSULE PO ONE (05:00)
[2019-02-22] MEDS ORDERED: LORazepam 0.5 MG TABLET PO ONE (05:00)
[2019-02-22] MEDS: hydrOXYzine PAMOATE 25 MG CAPSULE (FP) PO PRN (05:42)
[2019-02-22 09:41] VITALS: BP 126/81; PULSE 75; TEMP 97.4
[2019-02-22] MEDS: VENLAFAXINE HCL 75 MG TABLET PO SCH (10:11)
[2019-02-22] MEDS: PRENATAL VITAMINS W/ FOLIC ACID TABLET (FP) PO SCH (10:11)
[2019-02-22] MEDS: TIMOLOL 0.5% OPHTHALMIC SOL 5 ML BOTTLE OD SCH (10:11)
[2019-02-22] MEDS: amLODIPine BESYLATE 5 MG TABLET (FP) PO SCH (10:11)
--- NOTE | 2019-02-22 14:06 | DS ---
[facility] Detox Discharge Summary Admission Date: 02/17/19 Discharge Date: 02/22/19 - History Present History: Alcohol Dependence Additional Comments: 58 years old male admitted on 02/17/19 for alcohol withdrawal sx management treated with ativan detox regimen patient is alert oriented x 3 cardiac s1S2 regular rate rhythm respiratory clear lung bilaterally on auscultation extremities full range of motion - Physical Exam Results Vital Signs: Vital Signs Temperature 97.4 F L 02/22/19 09:40 Pulse Rate 75 02/22/19 09:40 Respiratory Rate 18 02/22/19 09:40 Blood Pressure 126/81 02/22/19 09:40 O2 Sat by Pulse Oximetry (%) Pertinent Admission Physical Exam Findings: alcohol withdrawal sx Laboratory Last Values WBC 3.9 K/mm3 (4.0-10.0) L 02/18/19 08:00 RBC 3.77 M/mm3 (4.00-5.60) L 02/18/19 08:00 Hgb 12.8 GM/dL (11.7-16.9) 02/18/19 08:00 Hct 38.1 % (35.4-49) 02/18/19 08:00 MCV 101.0 fl (80-96) H 02/18/19 08:00 MCH 33.8 pg (25.7-33.7) H 02/18/19 08:00 MCHC 33.5 g/dl (32.0-35.9) 02/18/19 08:00 RDW 12.8 % (11.9-15.9) 02/18/19 08:00 Plt Count 79 K/MM3 (134-434) L 02/18/19 08:00 MPV 10.8 fl (7.5-11.1) 02/18/19 08:00 PT with INR 13.00 SEC (9.7-13.0) 02/19/19 07:50 INR 1.10 (0.83-1.09) H 02/19/19 07:50 Sodium 140 mmol/L (136-145) 02/18/19 08:00 Potassium 3.4 mmol/L (3.5-5.1) L 02/18/19 08:00 Chloride 105 mmol/L (98-107) 02/18/19 08:00 Carbon Dioxide 30 mmol/L (21-32) 02/18/19 08:00 Anion Gap 5 MMOL/L (8-16) L 02/18/19 08:00 BUN 10.2 mg/dL (7-18) 02/18/19 08:00 Creatinine 1.2 mg/dL (0.55-1.3) 02/18/19 08:00 Est GFR (CKD-EPI)AfAm 77.88 02/18/19 08:00 Est GFR (CKD-EPI)NonAf 67.19 02/18/19 08:00 Random Glucose 106 mg/dL (74-106) 02/18/19 08:00 Calcium 8.4 mg/dL (8.5-10.1) L 02/18/19 08:00 Total Bilirubin 1.6 mg/dL (0.2-1) H 02/18/19 08:00 AST 152 U/L (15-37) H 02/21/19 07:50 ALT 196 U/L (13-61) H 02/19/19 07:50 Alkaline Phosphatase 77 U/L (45-117) 02/18/19 08:00 Total Protein 6.6 g/dl (6.4-8.2) 02/18/19 08:00 Albumin 3.1 g/dl (3.4-5.0) L 02/18/19 08:00 RPR Titer Nonreactive (NONREACTIVE) 02/18/19 08:00 lab noted ast elevation low K+ low plt - Treatment Hospital Course: Detox Protocol Followed, Detoxed Safely, Responded well, Discharged Condition Good, Rehab Referral Accepted Patient has Accepted [facility] Ref[facility] - Medication Discharge Medications: Ambulatory Orders Hydroxyzine HCl 25 mg PO BID 06/18/18 Timolol 0.5% [Timoptic 0.5%] 1 drop OD BID 06/18/18 Venlafaxine HCl [Effexor -] 75 mg PO TID 06/18/18 Amlodipine Besylate [Norvasc -] 5 mg PO DAILY #30 tablet 06/21/18 - Diagnosis (1) Alcohol dependence with withdrawal, uncomplicated Status: Acute (2) Glaucoma Status: Chronic Qualifiers: Glaucoma type: unspecified Laterality: unspecified laterality Qualified Code(s): H40.9 - Unspecified glaucoma (3) HTN (hypertension) Status: Chronic Qualifiers: Hypertension type: essential hypertension Qualified Code(s): I10 - Essential (primary) hypertension (4) Substance induced mood disorder Status: Suspected - AMA Did Patient Leave Against Medical Advice: No CIWA Score - CIWA Score Nausea/Vomitin-No Nausea/No Vomiting Muscle Tremors: None Anxiety: 0-No Anxiety, at Ease Agitation: 0-Normal Activity Paroxysmal Sweats: No Perspiration Orientation: 0-Oriented Tacttile Disturbances: 0-None Auditory Disturbances: 0-None Visual Disturbances: 0-None Headache: 0-None Present CIWA-Ar Total Score: 0
== END 2019-02-22 11:30 | disposition home or self-care (01) | DRG 775 ==
LOC: YASAS 13:32 → Y3N 19:01
PROVIDERS: ADMIT Allergy & Immunology; ATTEND Allergy & Immunology
PROC: HZ2ZZZZ Detoxification Services for Substance Abuse Treatment (ICD-10-PCS; principal; 2019-02-17)
DX: F10.230 Alcohol dependence with withdrawal, uncomplicated (principal); F12.10 Cannabis abuse, uncomplicated; F19.24 Other psychoactive substance dependence with psychoactive substance-induced mood disorder; F41.9 Anxiety disorder, unspecified; F32.9 Major depressive disorder, single episode, unspecified; I10 Essential (primary) hypertension; H40.9 Unspecified glaucoma; D72.819 Decreased white blood cell count, unspecified; R94.5 Abnormal results of liver function studies; B18.2 Chronic viral hepatitis C; Z91.19 Patient's noncompliance with other medical treatment and regimen; Z87.891 Personal history of nicotine dependence
CPT/HCPCS: 36415; 80053; 84450; 84460; 85027; 85610; 86593